=== PATIENT | female | born 2000 | race Caucasian/White ===

== ENCOUNTER 2022-09-21 02:43 | Emergency (ER) | payer OTHER, SELFPAY ==
[2022-09-21 02:45] VITALS: BP 137/90; PULSE 102; RESP 24; TEMP 37.2; O2SAT 94
--- NOTE | 2022-09-21 02:45 | ED.GENADULT ---
HPI - General Adult General Chief complaint: Asthma Stated complaint: Asthma Attack History of Present Illness HPI narrative: Lea is a 22F with PMH of asthma, anxiety and Crohns that presented to the ED for dyspnea. She has had allergy symptoms for days but was recently doing her nails with a new product. When she breathed it in she had almost instant wheezing and dyspnea as well as cough and anxiety. There is no CP, fevers, vomiting or lightheadedness. Related Data Home Medications Medication Instructions Recorded Confirmed albuterol 90 mcg/actuation aerosol 90 mcg inhalation PRN PRN wheezes 09/21/22 09/21/22 inhaler lorazepam 0.5 mg tablet (Ativan) 0.5 mg PO BID PRN Anxiety 09/21/22 09/21/22 Allergies Allergy/AdvReac Type Severity Reaction Status Date / Time No Known Allergies Allergy Verified 09/21/22 02:49 Review of Systems Review of Systems: All systems reviewed & are unremarkable except as noted in HPI and below Exam Const: General: healthy appearing and alert Nutritional Appearance: well nourished Orientation/consciousness: patient oriented x3 Limitations: no limitations HENMT: Head: normal to inspection Ears: external ears normal Face/Nose/Sinus: Normal external nose present Eyes: Conjunctivae: conjunctivae normal Pupils: Equal, round and reactive pupils present Neck: Neck: normal visual inspection Chest: Chest palpation & inspection: normal inspection of the chest Other: mildly increased work of breathing Resp: Effort & Inspection: no retractions and not tachypneic Other: slight wheezing worse in lower lobes Cardio: Rate: tachycardic Rhythm: regular rhythm Skin: General skin exam: normal color Neuro: General: patient oriented x3 and moves all extremities Cranial nerves: Yes Nystagmus not present Extrem: General: normal to inspection and no clubbing, cyanosis or edema Psych: Mental Status: mental status grossly normal Affect: Anxious affect present Course Course Emergency Course: Ordered duoneb, steroids and ativan After the meds she felt much better and wheezing had resolved Vital Signs Vital signs: Vital Signs Temperature 99 F 09/21/22 02:45 Pulse Rate 102 H 09/21/22 02:45 Respiratory Rate 24 H 09/21/22 02:45 Blood Pressure 137/90 09/21/22 02:45 Pulse Oximetry 94 09/21/22 02:45 Oxygen Delivery Room Air 09/21/22 02:45 Temperature 99 F 09/21/22 02:45 Pulse Rate 102 H 09/21/22 02:45 Respiratory Rate 24 H 09/21/22 02:45 Blood Pressure 137/90 09/21/22 02:45 Pulse Oximetry 96 09/21/22 02:53 Oxygen Delivery Room Air 09/21/22 02:53 Medical Decision Making Vital Signs Vital Signs: Vital Signs Temperature 99 F 09/21/22 02:45 Pulse Rate 102 H 09/21/22 02:45 Respiratory Rate 24 H 09/21/22 02:45 Blood Pressure 137/90 09/21/22 02:45 Pulse Oximetry 94 09/21/22 02:45 Oxygen Delivery Room Air 09/21/22 02:45 Temperature 99 F 09/21/22 02:45 Pulse Rate 102 H 09/21/22 02:45 Respiratory Rate 24 H 09/21/22 02:45 Blood Pressure 137/90 09/21/22 02:45 Pulse Oximetry 96 09/21/22 02:53 Oxygen Delivery Room Air 09/21/22 02:53 Discharge Plan Discharge Clinical Impression: Asthma with acute exacerbation Patient Disposition: Home, Self-Care Condition: Stable Instructions: Asthma (ED) Prescriptions: New prednisone 50 mg tablet 50 mg PO DAILY Qty: 4 0RF albuterol sulfate 90 mcg/actuation HFA aerosol inhaler 1 inh inhalation QID PRN (Reason: shortness of breath or wheezing) Qty: 8.5 0RF lorazepam [Ativan] 1 mg tablet 1 mg PO DAILY PRN (Reason: anxiety) Qty: 5 0RF No Action albuterol 90 mcg/actuation Aerosol 90 mcg INHALATION PRN PRN (Reason: wheezes) lorazepam [Ativan] 0.5 mg Tablet 0.5 mg PO BID PRN (Reason: Anxiety) Follow-up/Referrals: UNKNOWN,DOCTOR [Primary Care Provider] -
[2022-09-21 02:52] VITALS: PULSE 92; RESP 20; O2SAT 92
[2022-09-21] MEDS: IPRATROPIUM 0.5 MG/ALBUTEROL SULFATE 2.5 MG AMPUL.NEB 3 ML INHALATION (02:52)
[2022-09-21 02:53] VITALS: O2SAT 96
[2022-09-21 02:59] VITALS: PULSE 95
[2022-09-21] MEDS: ONDANSETRON INJ 4 MG/2 ML VIAL IV PUSH (03:09)
[2022-09-21] MEDS: methylPREDNISolone SOD SUCC 125 MG VIAL IV PUSH (03:09)
[2022-09-21] MEDS: LORazepam INJ (*CRX) 2 MG/ML VIAL 1 MG IV PUSH (03:15)
[2022-09-21 03:22] VITALS: BP 130/77; PULSE 98; RESP 20; O2SAT 97
[2022-09-21 03:29] VITALS: BP 128/77; PULSE 88; RESP 18; TEMP 36.6; O2SAT 98
== END 2022-09-21 03:34 | disposition home or self-care (01) ==
PROVIDERS: Emergency Provider Family Medicine
DX: J45.901 Unspecified asthma with (acute) exacerbation (principal)
CPT/HCPCS: 94640; 99283; J2060; J2405; J2930

== ENCOUNTER 2024-01-23 13:58 | Emergency (ER) | payer OTHER, SELFPAY ==
[2024-01-23 14:08] VITALS: BP 119/81; PULSE 81; RESP 18; TEMP 36.6; O2SAT 99
--- NOTE | 2024-01-23 16:45 | ED.EAR ---
HPI - Ear Problem General Chief complaint: Ear Stated complaint: Ear Pain Time Seen by Provider: 01/23/24 14:26 Source: patient and RN notes reviewed Mode of arrival: ambulatory Limitations: no limitations History of Present Illness HPI Narrative: Patient presents today complaining of a 5 day history of a bump inside her ear. Pain has been radiating down into her neck. No drainage, fever, or any additional symptoms. Currently rates her pain 4/10. Patient does wear an ear bud in this ear every day. Related Data Home Medications Medication Instructions Recorded Confirmed L norgest/E estradiol-E estrad 1 tablet PO DAILY 01/23/24 01/23/24 0.15 mg-30 mcg (84)/10 mcg(7) tabs,3mos (Simpesse) fluoxetine 10 mg capsule 10 mg PO DAILY 01/23/24 01/23/24 lamotrigine 200 mg tablet 200 mg PO DAILY 01/23/24 01/23/24 propranolol 10 mg tablet 10 mg PO DAILY 01/23/24 01/23/24 Allergies Allergy/AdvReac Type Severity Reaction Status Date / Time No Known Allergies Allergy Verified 01/23/24 14:12 Review of Systems Review of Systems: CONSTITUTIONAL: Denies body aches, fever, chills, or sweats. EYES: Denies visual changes, redness, or discharge. ENT: Denies rhinorrhea, congestion, sore throat, or otalgia. + bump in right ear canal CARDIOVASCULAR: Denies chest pain, palpitations, or edema. RESPIRATORY: Denies cough or dyspnea. GASTROINTESTINAL: Denies abdominal pain, nausea, vomiting, or diarrhea. GENITOURINARY: Denies dysuria or hematuria. SKIN: Denies rash, itching, or wounds. MUSCULOSKELETAL: Denies back pain, joint pain, or myalgia. NEUROLOGIC: Denies headache, numbness, tingling, or weakness. PSYCH: Denies depression or anxiety. PMFSH Comments At time of signature, I have reviewed and agree with nursing past medical, surgical, social and family history unless otherwise noted. Please see nursing chart for further information. There is no relevant family history pertinent to the presenting complaint Exam Narrative: GENERAL: Well-appearing, well-nourished, and in no acute distress. HEAD: Normocephalic, atraumatic. EYES: EOMI. No redness or drainage. Conjunctivae normal. ENT: Mucous membranes pink and moist. Right ear: TM normal. Small, superficial nodule to the upper ear canal. No erythema, fluctuance, or pustule noted. Tender to palpation. At this time, this bump is not ready to be lanced. No external ear swelling, redness or tenderness noted. NECK: Normal AROM. Supple. No lymphadenopathy. CHEST: No respiratory distress. EXTREMITIES: Normal range of motion. No edema. SKIN: Warm, dry, no rash. Capillary refill normal. Normal skin turgor. NEURO: No focal deficits. Alert and oriented x3. Gait steady. PSYCH: Normal affect. No signs of depression or anxiety. Course Course Level of Care: Express Care Visit Vital Signs Vital signs: Vital Signs Temperature 97.8 F 01/23/24 14:08 Pulse Rate 81 01/23/24 14:08 Respiratory Rate 18 01/23/24 14:08 Blood Pressure 119/81 01/23/24 14:08 Pulse Oximetry 99 01/23/24 14:08 Oxygen Delivery Room Air 01/23/24 14:08 Temperature 97.8 F 01/23/24 14:08 Pulse Rate 81 01/23/24 14:08 Respiratory Rate 18 01/23/24 14:08 Blood Pressure 119/81 01/23/24 14:08 Pulse Oximetry 99 01/23/24 14:08 Oxygen Delivery Room Air 01/23/24 14:08 Reviewed Medical Decision Making MDM Narrative Medical decision making narrative: The small bump inside patient's ear will be treated with some topical mupirocin. At this time it is not ready to be lanced. Patient will follow-up if symptoms worsen. Differential Diagnosis Differential Diagnosis: Abscess, cellulitis Vital Signs Vital Signs: Vital Signs Temperature 97.8 F 01/23/24 14:08 Pulse Rate 81 01/23/24 14:08 Respiratory Rate 18 01/23/24 14:08 Blood Pressure 119/81 01/23/24 14:08 Pulse Oximetry 99 01/23/24 14:08 Oxygen Delivery Room Air 01/23/24 14:08 [place]
== END 2024-01-23 14:36 | disposition home or self-care (01) ==
PROVIDERS: Emergency Provider Nurse Practitioner
DX: H60.11 Cellulitis of right external ear (principal)
CPT/HCPCS: 99213; G0463